=== PATIENT | female | born 1995 | race Native Hawaiian/Other Pacific Islander ===

== ENCOUNTER 2019-02-17 21:21 | Emergency (ER) | payer BC ==
[2019-02-17 21:48] LABS: Rapid Strep Molecular Negative (Negative)
--- NOTE | 2019-02-18 00:26 | ED ---
Throat Pain/Nasal Congestion - HPI Summary HPI Summary: This patient is a 23 year old F presenting to ED with a chief complaint of throat pain since 0800 on 02/14/19. The patient rates the pain 3/10 in severity. Symptoms aggravated by nothing. Symptoms alleviated by nothing. Patient reports SHANKAR, myalgia, weakness, fatigue, fever at 101, white swollen tonsils, difficulty breathing due to congestion. Patient denies N/V, abdominal pain. No PMHx of DM, HTN. Patient drinks occasionally, does not use substances or smoke tobacco. PSHx wisdom teeth. FHx DM. - History of Current Complaint Chief Complaint: EDThroatPain Time Seen by Provider: 02/18/19 00:20 Hx Obtained From: Patient Onset/Duration: Lasting Days - Since 0800 02/14/19, Still Present Associated Signs And Symptoms: Positive: Negative - Allergies/Home Medications Allergies/Adverse Reactions: Allergies Allergy/AdvReac Type Severity Reaction Status Date / Time No Known Allergies Allergy Verified 02/17/19 21:26 Home Medications: Home Medications Ethinyl Estradiol/Drospirenone [Gianvi 3 mg-0.02 mg Tablet] 1 tab PO DAILY 02/17 [History Confirmed 02/17/19] PMH/Surg Hx/FS Hx/Imm Hx Endocrine/Hematology History: Denies: Hx Diabetes Cardiovascular History: Denies: Hx Hypertension - Surgical History Surgery Procedure, Year, and Place: [place] teeth Infectious Disease History: No Infectious Disease History: Reports: Traveled Outside the [place] in Last 30 Days - Family History Known Family History: Positive: Diabetes - Social History Alcohol Use: Occasionally Hx Substance Use: No Substance Use Type: Reports: None Hx Tobacco Use: No Smoking Status (MU): Never Smoked Tobacco Review of Systems Positive: Fever Respiratory: Other - Difficulty breathing due to congestion Negative: Abdominal Pain, Vomiting, Nausea Positive: Myalgia Neurological: Other - Fatigue Positive: Headache, Weakness All Other Systems Reviewed And Are Negative: Yes Physical Exam - Summary Physical Exam Summary: Appearance:Well-appearing, Well-nourished, lying in bed comfortable Skin:Warm, dry, no obvious rash Eyes:sclera anicteric, no conjunctival pallor ENT:tonsilar pharyngitis without evidence of abscess Neck:deferred Respiratory:No signs of respiratory distress Cardiovascular:Appears well perfused, pulses are nml Abdomen:deferred Musculoskeletal:Moving all 4 extremities without obvious discomfort Neurological:Awakeand alert, mentation is normal, speech is fluent and appropriate Psychiatric:affect is normal, does not appear anxious or depressed Triage Information Reviewed: Yes Vital Signs On Initial Exam: Initial Vitals Temp Pulse Resp BP Pulse Ox 100.4 F 112 16 142/103 97 02/17/19 21:24 02/17/19 21:24 02/17/19 21:24 02/17/19 21:24 02/17/19 21:24 Vital Signs Reviewed: Yes Diagnostics - Vital Signs Vital Signs Temp Pulse Resp BP Pulse Ox 02/17/19 23:19 101 F 111 18 138/99 98 02/17/19 21:24 100.4 F 112 16 142/103 97 - Laboratory Lab Results: Lab Results 02/17/19 Range/Units 21:34 Group A Strep Rapid Negative (Negative) Lab Statement: Any lab studies that have been ordered have been reviewed, and results considered in the medical decision making process. EENT Course/Dx - Course Course Of Treatment: This patient is a 23 year old F presenting to ED with a chief complaint of throat pain since 0800 on 02/14/19. In the ED, strep test was negative. Patient will be discharged home with dx of viral pharyngitis. Patient understands and agrees with this plan. - Diagnoses Provider Diagnoses: Viral pharyngitis Discharge - Sign-Out/Discharge Documenting (check all that apply): Patient Departure - Discharge Patient Received Moderate/Deep Sedation with Procedure: No - Discharge Plan Condition: Good Disposition: HOME Patient Education Materials: Pharyngitis (ED) Referrals: [facility] @ [Outside] - 1 Week (if not improving) - Billing Disposition and Condition Condition: GOOD Disposition: Home - Attestation Statements Document Initiated by Scribe: Yes Documenting Scribe: Thomas Benavides Provider For Whom Meredith is Documenting (Include Credential): Jeffry Alexandra MD Scribe Attestation: Thomas Tierney, scribed for Jeffry Alexandra MD on 02/19/19 at 0222. Scribe Documentation Reviewed: Yes Provider Attestation: The documentation as recorded by the Thomas damian accurately reflects the service I personally performed and the decisions made by me, Jeffry Alexandra MD Status of Scribe Document: Viewed
[2019-02-18 00:43] VITALS: BP 126/84
== END 2019-02-18 00:42 | disposition home or self-care (01) ==
LOC: ED 21:21
DX: J02.8 Acute pharyngitis due to other specified organisms (principal)
CPT/HCPCS: 87651; 99282